=== PATIENT | female | born 1940 | race Caucasian/White ===

== ENCOUNTER → 2017-01-23 | Outpatient (REF) | payer MEDICARE | LOC: M WUC 16:17 | PROVIDERS: ATTEND Physician Assistant | DX: L03.115 Cellulitis of right lower limb (principal) ==

== ENCOUNTER 2025-02-05 14:49 | Emergency (ER) | payer MEDICARE ==
[~2025-02-05] VITALS: Ht 165.1 cm; Wt 137.0 kg
[2025-02-05 15:47] LABS: BASO # 0.0 10^3/uL (0.0-0.2); BASO % 0.2 % (0.0-1.0); EOS # 0.0 10^3/uL (0.0-0.5); EOS % 0.2 % (0.0-3.0); LYMPH # 0.6 10^3/uL (1.5-5.0); LYMPH % 11.6 % (24.0-44.0); MONO # 0.3 10^3/uL (0.0-0.8); MONO % 5.5 % (2.0-8.0); NEUTROPHILS # 4.3 10^3/uL (1.5-8.5); NEUTROPHILS % 82.1 % (36.0-66.0); PLATELET COUNT, AUTOMATED 159 10^3/uL (150-450)
[2025-02-05] MEDS: NS (Normal Saline) 0.9% 1,000 ML IV ONE (16:10)
[2025-02-05] MEDS: ONDANSETRON 4MG 2ML VIAL IV ONE (16:11)
[2025-02-05 16:13] LABS: ALT/SGPT 16.0 U/L (7.0-40); AST/SGOT 17.0 U/L (<34); CALCIUM LEVEL 8.8 MG/DL (8.3-10.6); CARBON DIOXIDE LEVEL 27.0 MMOL/L (20-31); CHLORIDE LEVEL 106.0 MMOL/L (98-107); CREATININE FOR GFR 0.83 MG/DL (0.55-1.30); GLOMERULAR FILTRATION RATE 69.5 (>32); MAGNESIUM LEVEL 2.0 MG/DL (1.8-2.4); POTASSIUM SERUM 3.5 MMOL/L (3.5-5.1); SODIUM LEVEL 143.0 MMOL/L (136-145)
[2025-02-05] MEDS: ONDANSETRON 4MG ORAL DISINTEGRATING TAB PO ONE (19:50)
[2025-02-05] MEDS ORDERED: ONDA-282 PO (19:53)
[2025-02-05 20:15] VITALS: BP 130/61; TEMP 97; O2SAT 94
== END 2025-02-05 20:20 | disposition home or self-care (01) ==
LOC: M ED 14:49
DX: R11.2 Nausea with vomiting, unspecified (principal); R19.7 Diarrhea, unspecified; E03.9 Hypothyroidism, unspecified; H40.9 Unspecified glaucoma; Z88.1 Allergy status to other antibiotic agents; Z88.8 Allergy status to other drugs, medicaments and biological substances; Z79.83 Long term (current) use of bisphosphonates
CPT/HCPCS: 80053; 83735; 85025; 96361; 96374; 96375; 99284; J2405; J2765; J3360